=== PATIENT | female | born 1965 | race Caucasian/White ===

== ENCOUNTER 2017-08-20 04:45 | Observation (INO) | payer BC, OTHER ==
[2017-08-20] MEDS ORDERED: Adenocard IV 6 MG/2 ML IV ONE ×3 (04:55→05:05)
[2017-08-20] MEDS ORDERED: Sodium Chloride 0.9% 1000 ML 1,000 ML ONE (05:01)
[2017-08-20] MEDS ORDERED: Zofran 4 MG/2 ML VIAL ONE (05:03)
[2017-08-20] MEDS ORDERED: Zofran 4 MG/2 ML VIAL IV ONE (05:05)
[2017-08-20] MEDS ORDERED: Cardizem IV 50 MG/10 ML IV ONE ×3 (05:05→05:19)
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
[2017-08-20 05:11] LABS: BASOPHIL % 0.5 % (0.0-0.4); Basophil (Absolute #) 0.03 (0-0.4); Eosinophil % 2.5 % (0.00-5.0); Eosinophil (Absolute #) 0.15 (0-0.5); Granulocyte Absolute (ANC) 2.68 (1.4-6.9); Granulocytes % 44.8 % (36.0-66.0); Lymphocyte (Absolute #) 2.38 (1.0-4.6); Lymphocytes % 39.8 % (24.0-44.0); Mean Cell Volume 94.2 fl (78-100); Mean Corpuscular Hemoglobin 31.4 pg (26-32); Mean Corpuscular Hgb Concent. 33.3 g/dl (32-36); Mean Platelet Volume 11.1 fl (6-9.5); Monocyte (Absolute #) 0.74 (0.0-1.3); Monocytes % 12.4 % (0.0-12.0); Platelet Count 225 K/mm3 (150-450); Red Blood Count 4.46 M/mm3 (4.1-5.4); Red Cell Distribution Width 13.5 % (11.5-14.0)
[2017-08-20 05:28] LABS: INR 0.84 (0.8-3.0)
[2017-08-20 05:31] LABS: PTT 31.2 SECONDS (25.3-37.0)
[2017-08-20 05:44] LABS: ALKALINE PHOSPHATASE 101 U/L (46-116); ANION GAP 16.9 MEQ/L (5-15); BLOOD UREA NITROGEN 14 mg/dL (9-20); CHLORIDE 106 mEq/L (98-107); Calcium 8.3 mg/dL (8.5-10.1); Carbon Dioxide 24.4 mEq/L (21-32); Creatinine 1 0.87 mg/dl (0.55-1.30); EST GLOMERULAR FILTRATION RATE > 60 ML/MIN; Glucose 122 MG/DL (70-110); NT PRO BNP 144 pg/ml (0-125); Potassium 3.4 mEq/L (3.5-5.1); SGOT/AST 20 U/L (15-37); SGPT/ALT 23 U/L (12-78); SODIUM 144 mEq/L (136-145); Total Protein 7.8 gm/dL (6.4-8.2)
[2017-08-20] MEDS ORDERED: LOPRESSOR 5 MG/5 ML INJECTION IV ONE ×2 (05:54→05:56)
[2017-08-20] MEDS ORDERED: CARDIZEM DRIP 100 MG/100 ML D5W 100 ML IV PRN (06:06)
[2017-08-20] MEDS ORDERED: Klor Con 10 MEQ PO ONE ×2 (06:09→06:14)
[2017-08-20] MEDS ORDERED: MILK OF MAGNESIA 30 ML PO PRN (06:15)
[2017-08-20] MEDS ORDERED: Senokot-S Tablet PO PRN (06:15)
[2017-08-20] MEDS ORDERED: MAALOX ES 30 ML UNIT DOSE PO PRN (06:15)
[2017-08-20] MEDS ORDERED: Zofran 4 MG/2 ML VIAL IV PRN (06:15)
[2017-08-20] MEDS ORDERED: Ativan 2 MG/1 ML VIAL IV ONE (07:25)
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
[2017-08-20] MEDS ORDERED: xanAX 0.25 MG PO PRN (09:15)
[2017-08-20] MEDS ORDERED: xanAX 0.5 MG PO PRN (09:21)
[2017-08-20] MEDS: Klor Con 10 MEQ PO SCH (09:27)
[2017-08-20] MEDS: Lopressor 50 MG PO SCH ×2 (09:28→20:55)
[2017-08-20] MEDS: XARELTO 10 MG TABLET PO SCH (09:28)
[2017-08-20] MEDS: Ecotrin 325 MG PO SCH (09:28)
[2017-08-20] MEDS: Wellbutrin XL 150 MG PO SCH (09:29)
[2017-08-20] MEDS ORDERED: NON-FORMULARY ITEM (Rivaroxaban [Xarelto] 20 MG) PO SCH (10:00)
--- NOTE | 2017-08-20 10:31 | XRAY ---
Indication: SVT. Comparison: July 06, 2013. Portable chest again demonstrates normal heart, lungs, and bony thorax with a few incidental calcified granulomas and old right 6th rib fracture.
[2017-08-20] MEDS: TYLENOL 325 MG PO PRN ×2 (12:12→19:49)
[2017-08-20] MEDS: Cardizem CD 180 MG PO SCH (12:12)
[2017-08-20 22:35] VITALS: O2SAT 95
[2017-08-21 06:32] LABS: Risk Ratio 2.5
[2017-08-21 07:58] VITALS: BP 116/69; PULSE 72
--- NOTE | 2017-08-21 08:12 | PCM.DS ---
Discharge Summary Date of Admission: 08/20/17 06:44 Admitting Physician: JOHN MARY Primary Care Provider: JOHN MARY Allergies Allergies No Known Drug Allergies Allergy (Unverified 08/01/12 12:48) Hospital Summary - Hospital Course Hospital Course: patient presented in a fib with RVR, triggered by alcohol intoxication which has happened in the past. she converted on cardizem and has stayed in sinus rhythm since then. feels well and has no complaints today at the time of discharge. - Vitals & Intake/Output Vital Signs: Vital Signs Temperature 98.2 F 08/21/17 07:55 Pulse Rate 72 08/21/17 07:55 Respiratory Rate 16 08/21/17 07:55 Blood Pressure 116/69 08/21/17 07:55 O2 Sat by Pulse Oximetry 95 08/21/17 07:55 Oxygen-Last Documented O2 Percentage 2 Liters = 28% Intake & Output: Intake & Output 08/18/17 08/19/17 08/20/17 08/21/17 11:59 11:59 11:59 11:59 Intake Total 1118 Balance 1118 Weight 94.4 kg - Lab Result Diagrams: 08/20/17 05:08 08/20/17 05:08 Lab Results-Last 24 Hrs: Lab Results-Last 24 Hours 08/20/17 08/20/17 08/20/17 Range/Units 08:00 10:59 14:00 Troponin I < 0.017 < 0.017 < 0.017 (0.000-0.056) ng/ml Triglycerides (30-200) mg/dL Cholesterol (100-200) mg/dL LDL Cholesterol (5-99) mg/dL HDL Cholesterol (35-60) mg/dL Heart Disease Risk Ratio 08/20/17 08/21/17 Range/Units 17:12 05:05 Troponin I < 0.017 (0.000-0.056) ng/ml Triglycerides 159 (30-200) mg/dL Cholesterol 222 H (100-200) mg/dL LDL Cholesterol 113 H (5-99) mg/dL HDL Cholesterol 90 H (35-60) mg/dL Heart Disease Risk Ratio 2.5 - Procedures and Test Procedures and Tests throughout Hospitalization: Therapy Orders & Screens 08/20/17 08:15 Oxygen NASAL CANNULA 2 lpm Comment: 08/20/17 12:53 EKG ONCE Comment: 08/21/17 05:00 EKG ONCE Comment: 08/22/17 05:00 EKG ONCE Comment: 08/23/17 05:00 EKG ONCE Comment: Discharge Exam General Appearance: no apparent distress, alert Skin Exam: normal color, warm, dry Respiratory Exam: normal breath sounds, lungs clear, No respiratory distress Cardiovascular Exam: regular rate/rhythm, normal heart sounds Gastrointestinal/Abdomen Exam: soft, No tenderness, No mass Extremity Exam: normal inspection, normal range of motion Final Diagnosis/Problem List - Final Discharge Diagnosis/Problem (1) Atrial fibrillation with rapid ventricular response Current Visit: Yes Status: Acute (2) Alcohol intoxication Current Visit: Yes Status: Acute - Discharge Disposition: Home, Self-Care Condition: Fair Prescriptions: Continue Potassium Chloride 10 Meq Tab* [Klor Con 10 MEQ] 10 meq PO DAILY Rivaroxaban [Xarelto] 20 mg PO DAILY Metoprolol Tartrate 50 mg PO BID Bupropion HCl Xl 150 mg [Wellbutrin XL 150 MG] 150 mg PO DAILY Alprazolam 0.25 mg [xanAX 0.25 MG] 0.5 mg PO BIDPRN PRN PRN Reason: Anxiety Ibuprofen 200 mg [Motrin 200 mg] 400 mg PO Q6HPRN PRN PRN Reason: Pain And/Or Fever Follow up with: JOHN MARY MD [Primary Care Provider] - EVANGELIST HITCHCOCK [CONSULTING PHYSICIAN] - 1 Week
[2017-08-21] MEDS: Cardizem CD 180 MG PO SCH (08:36)
[2017-08-21] MEDS: XARELTO 10 MG TABLET PO SCH (08:39)
[2017-08-21] MEDS: Ecotrin 325 MG PO SCH (08:40)
[2017-08-21] MEDS: Wellbutrin XL 150 MG PO SCH (08:40)
[2017-08-21] MEDS: Klor Con 10 MEQ PO SCH (08:40)
[2017-08-21] MEDS: Lopressor 50 MG PO SCH (08:40)
== END 2017-08-21 09:30 | disposition home or self-care (01) ==
LOC: ED 04:45 → INTOOBSV 06:44 → ICU 06:44 → UNDODISIN 08-21 09:30
PROVIDERS: ADMIT Family Medicine; ATTEND Family Medicine
DX: I48.91 Unspecified atrial fibrillation (principal); F10.129 Alcohol abuse with intoxication, unspecified; F41.9 Anxiety disorder, unspecified
CPT/HCPCS: 36000; 36415; 71045; 80053; 80061; 83721; 83735; 83880; 84443; 84484; 85025; 85610; 85730; 93005; 93041; 93268; 96360; 96365; 99285; G0378; G0481; J0153; J2060; J2405; A9270-GY

== ENCOUNTER 2025-02-21 03:18 | Observation (INO) | payer OTHER ==
[2025-02-21] MEDS ORDERED: DUONEB 0.5-3 MG/3 ml Neb IH ONE (03:58)
[2025-02-21] MEDS: DUONEB 0.5-3 MG/3 ml Neb IH ONE (04:01)
[2025-02-21 04:14] LABS: BASOPHIL % 1.0 % (0.1-1.2); Basophil (Absolute #) 0.08 x10^3/uL (0.01-0.08); Eosinophil (Absolute #) 0.05 x10^3/uL (0.04-0.36); Hematocrit 40.3 % (34.1-44.9); Hemoglobin 13.6 g/dL (11.2-15.7); IMMATURE GRAN # 0.04 x10^3u/L (0.001-0.031); IMMATURE GRAN % 0.5 % (0.001-0.429); Lymphocyte (Absolute #) 1.02 x10^3/uL (1.18-3.74); Mean Corpuscular Hemoglobin 30.6 pg (25.6-32.2); Mean Corpuscular Hgb Concent. 33.7 g/dL (32.2-35.5); Monocyte (Absolute #) 0.76 x10^3/uL (0.24-0.86); NUCLEATED RBC # 0.00 x10^3u/L (0.00-0.012); NUCLEATED RBC % 0.0 % (0.00-0.2); Platelet Count 245 x10^3/uL (182-369); Red Blood Count 4.45 x10^6/uL (3.93-5.22); White Blood Count 7.9 x10^3/uL (3.98-10.04)
--- NOTE | 2025-02-21 04:29 | XRAY ---
CLINICAL HISTORY: cough, lung congestion COMPARISON: None. TECHNIQUE: Contiguous axial images were obtained from the neck base through the upper abdomen without contrast. In addition, sagittal and coronal reconstructions were performed to potentially increase the sensitivity for the detection of disease. CT scan was performed according to ALARA (as low as reasonable achievable). FINDINGS: A calcified nodule measuring 6mm is seen in the posterior segment of right upper lobe. The lungs are otherwise clear, with no focal areas of consolidation. The central airways are patent. There are no pleural effusions. No pneumothorax is seen. Evaluation of the mediastinum and jhoan is limited due to the lack of intravenous contrast. Calcified right hilar lymph node is seen. No significant axillary or mediastinal adenopathy is identified. The heart, aorta, and pulmonary arteries are of normal size and configuration. There are appreciable coronary artery and aortic atherosclerotic calcifications. No pericardial effusion is identified. The thyroid is unremarkable. No aggressive appearing osseous lesions are identified. Surgical sutures are seen in the stomach wall. IMPRESSION: 1. 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 Electronically Signed by: Chester Calderon MD. (02/21/2025 04:26:57 EDT)
[2025-02-21 04:30] LABS: Calcium 8.8 mg/dL (8.4-10.2); Carbon Dioxide 25.0 mmol/L (22-30); Creatinine 1 0.46 mg/dL (0.52-1.04); EST GLOMERULAR FILTRATION RATE 110.2 ML/MIN; Glucose 122.0 mg/dL (74-106); Potassium 4.0 mmol/L (3.5-5.1); SGOT/AST 42.0 U/L (14-36); SGPT/ALT 34.0 U/L (0-35); Total Protein 7.4 g/dL (6.3-8.2)
[2025-02-21] MEDS ORDERED: Sterile H2O 10 ml IJ ONE (04:32)
[2025-02-21] MEDS: HYDROCODONE-ACETAMIN 2.5-108/5 ML SOLUTION PO STA (04:33)
[2025-02-21] MEDS ORDERED: TRANDATE 100 MG/20 ML MDV FOR DRIP IV ONE (04:33)
[2025-02-21] MEDS ORDERED: ROCEPHIN 2 GM/100 ML NACL 2 GM/100 ML IVPB IV ONE (04:35)
[2025-02-21] MEDS ORDERED: HYDROCODONE-ACETAMIN 2.5-108/5 ML SOLUTION ONE (04:35)
[2025-02-21] MEDS: solu-MEDROL 125 MG, Sterile H2O 10 ml 2 ML IV ONE (04:40)
[2025-02-21] MEDS: ROCEPHIN 2 GM/100 ML NACL 2 GM/100 ML IVPB IV ONE (04:40)
[2025-02-21] MEDS: TRANDATE 100 MG/20 ML MDV FOR DRIP IV ONE (04:41)
[2025-02-21 04:54] LABS: INFLUENZA A NEGATIVE (NEGATIVE); INFLUENZA B NEGATIVE (NEGATIVE); RESPIRATORY SYNCTIAL VIRUS NEGATIVE (NEGATIVE); SARS-CoV-2 Xpert Express NEGATIVE (NEGATIVE)
--- NOTE | 2025-02-21 06:29 | ERPHSYRPT ---
- History of Present Illness Time Seen by Provider: 02/21/25 03:39 Source: patient Exam Limitations: no limitations Patient Subjective Stated Complaint: cough, lung congestion, rib pain from coughing Triage Nursing Assessment: Pt ambulated into ER without diff, spouse at bedside. Pt c/o cough, lung congestion and rib pain bilat from coughing. Rt side lungs ant/post are coarse with rhonchi, Lt side lungs ant/post clear with an occasional wheeze. Pt denies fever, vomiting or diarrhea. Pt's cough is occasionally productive with thin, clear to white sputum. Pt only took one dose of her b/p med yesterday but it is ordered twice daily. Physician History: 59-year-old female presented in the ER with 4 to 5 days history of cough congestion symptoms. Patient reported it started as a sore throat followed by soreness in the chest with cough initially nonproductive but now minimal productive of clear sputum. Patient reports nonstop coughing which gets especially worse with lying down and she cannot sleep. Because of repeated coughing complaining of generalized chest soreness/pain. No difficulty breathing otherwise. Subjective feeling of fever and chills. No known sick contact. No history of coronary artery disease. Patient blood pressure is in 190s, has not taken her evening dose of metoprolol. Allergies/Adverse Reactions: No Known Drug Allergies Allergy (Unverified 02/21/25 03:35) Home Medications: Metoprolol Tartrate 50 mg PO BID 08/20/17 [History] Hx Tetanus, Diphtheria Vaccination/Date Given: Yes Hx Influenza Vaccination/Date Given: Yes Hx Pneumococcal Vaccination/Date Given: Yes Travel Risk - International Travel Have you traveled outside of the country in past 3 weeks: No - Emerging Infectious Disease Are you exhibiting symptoms associated with any current EIDs: Yes Symptoms: Cough: New Onset, Shortness of Breath - Review of Systems Constitutional: Fever, Chills, Fatigue Eyes: No Symptoms Ears, Nose, & Throat: Throat Swelling Respiratory: Cough, Dyspnea, Wheezing Cardiac: Chest Pain Abdominal/Gastrointestinal: No Symptoms Genitourinary Symptoms: No Symptoms Musculoskeletal: Myalgias Skin: No Symptoms Neurological: No Symptoms Psychological: No Symptoms Endocrine: No Symptoms Hematologic/Lymphatic: No Symptoms Immunological/Allergic: No Symptoms - Past Medical History Pertinent Past Medical History: No Neurological History: No Pertinent History ENT History: No Pertinent History Cardiac History: Arrhythmia, Hypertension Respiratory History: No Pertinent History Endocrine Medical History: No Pertinent History Musculoskeletal History: No Pertinent History GI Medical History: No Pertinent History History: No Pertinent History Psycho-Social History: Anxiety, Depression Female Reproductive Disorders: No Pertinent History - Past Surgical History Past Surgical History: Yes Neuro Surgical History: No Pertinent History Cardiac: Other Respiratory: No Pertinent History Gastrointestinal: Other Genitourinary: No Pertinent History Musculoskeletal: No Pertinent History Female Surgical History: Section Other Surgical History: BARIATRIC SURGERY. TONSILLECTOMY. cardiac ablation - Social History Smoking Status: Never smoker Exposure to second hand smoke: No Drug Use: none - Social Determinants of Health Will the patient participate in the screening: Yes Do you worry about a steady place to live?: No Do you have any problems with any of the following?: No known problems In the past 12 months,have you had to go without utilities?: No Transportation Issues: No Has anyone in your support network made you feel unsafe?: No Have you or anyone in your house had to go w/o enough food: No - Nursing Vital Signs Nursing Vital Signs: Initial Vital Signs Temperature 98.5 F 02/21/25 03:23 Pulse Rate 99 H 02/21/25 03:23 Respiratory Rate 20 02/21/25 03:23 Blood Pressure 203/110 02/21/25 03:23 O2 Sat by Pulse Oximetry 96 02/21/25 03:23 Pain Scale Pain Intensity 4 - Physical Exam General Appearance: no apparent distress, alert Eye Exam: PERRL/EOMI Ears, Nose, Throat Exam: pharyngeal erythema Neck Exam: normal inspection, non-tender, supple, full range of motion Respiratory Exam: diminished breath sounds, crackles/rales, wheezing Cardiovascular Exam: regular rate/rhythm, normal heart sounds Gastrointestinal/Abdomen Exam: soft, normal bowel sounds Back Exam: normal inspection, normal range of motion Extremity Exam: normal inspection, normal range of motion Neurologic Exam: alert, oriented x 3, cooperative Skin Exam: normal color SpO2 Interpretation: normal SpO2: 93 O2 Delivery: Room Air - Course EKG Interpreted by Me: RATE ([id number]), Sinus Rhythm, NORMAL AXIS, NORMAL INTERVALS, NORMAL QRS Ordered Tests: Active Orders 24 hr Category Date Time Status IV Insertion STAT Care 02/21/25 03:48 Active CHEST WITHOUT CONTRAST [CT] Stat Exams 02/21/25 03:44 Completed BLOOD CULTURE Stat Lab 02/21/25 04:12 Received CBC W DIFF Stat Lab 02/21/25 04:00 Completed CMP Stat Lab 02/21/25 04:00 Completed Lactic Acid Stat Lab 02/21/25 03:46 Completed Lactic Acid Stat Lab 02/21/25 06:44 Completed Respiratory Therapy Assessment DAILY RT 02/21/25 04:01 Active Transfer Order Routine Transfer 02/21/25 Ordered Medication Summary Generic Name Dose Route Start Last Admin Trade Name Freq PRN Reason Stop Dose Admin Sodium Chloride 1,000 mls @ 1,000 mls/hr 02/21/25 04:30 02/21/25 07:01 Sodium Chloride 0.9% 1000 Ml IV 03/23/25 04:29 999 mls/hr .Q1H FELTON Administration Azithromycin 500 mg/ Sodium 250 mls @ 250 mls/hr 02/21/25 06:53 02/21/25 07:02 Chloride IV 02/21/25 07:52 250 mls/hr STAT STA 250 mls/hr Administration Discontinued Medications Generic Name Dose Route Start Last Admin Trade Name Freq PRN Reason Stop Dose Admin Hydrocodone Bitart/Acetaminophen Confirm 02/21/25 04:35 Hydrocodone/Acetaminophen 5 Ml Udcup Administered 02/21/25 04:36 Dose 10 ml .ROUTE .STK-MED ONE Hydrocodone Bitart/Acetaminophen 10 ml 02/21/25 04:33 02/21/25 04:33 Hydrocodone/Acetaminophen 5 Ml Udcup PO 02/21/25 04:34 10 ml STAT STA Administration Albuterol/Ipratropium 3 ml 02/21/25 03:48 02/21/25 04:01 Ipratropium/Albuterol Sulfate 3 Ml Ampul.Neb IH 02/21/25 03:49 3 ml STAT ONE Administration Albuterol/Ipratropium Confirm 02/21/25 03:58 Ipratropium/Albuterol Sulfate 3 Ml Ampul.Neb Administered 02/21/25 03:59 Dose 3 ml IH .STK-MED ONE Azithromycin Confirm 02/21/25 06:56 Azithromycin Inj Administered 02/21/25 06:57 Dose 500 mg IV .STK-MED ONE Methylprednisolone Sodium 0 mg 02/21/25 04:32 02/21/25 04:40 Succinate 125 mg/ Sterile IV 02/21/25 04:33 125 mg Water 2 ml STAT ONE Administration Ceftriaxone Sodium Confirm 02/21/25 04:35 Rocephin 2 Gm/100 Ml Nacl Administered 02/21/25 04:36 Dose 2 gm in 100 mls @ ud IV .STK-MED ONE Ceftriaxone Sodium 2 gm in 100 mls @ 200 mls/hr 02/21/25 04:30 02/21/25 05:10 Rocephin 2 Gm/100 Ml Nacl IV 02/21/25 04:59 Infused STAT ONE Infusion Sodium Chloride Confirm 02/21/25 06:56 Sodium Chloride 0.9% 250 Ml Administered 02/21/25 06:57 Dose 250 mls @ ud IV .STK-MED ONE Labetalol HCl 10 mg 02/21/25 04:31 02/21/25 04:41 Labetalol Hcl 100 Mg/20 Ml Mdv IV 02/21/25 04:32 10 mg ONCE ONE Administration Labetalol HCl Confirm 02/21/25 04:33 Labetalol Hcl 100 Mg/20 Ml Mdv Administered 02/21/25 04:34 Dose 100 mg IV .STK-MED ONE Methylprednisolone Sodium Succinate Confirm 02/21/25 04:34 Methylprednis Sod Succ 125 Mg/2 Ml Vial Administered 02/21/25 04:35 Dose 125 mg .ROUTE .STK-MED ONE Sterile Water Confirm 02/21/25 04:32 Water For Injection,Sterile 10 Ml Vial Administered 02/21/25 04:33 Dose 10 ml IJ .STK-MED ONE Lab/Rad Data: Laboratory Result Diagrams 02/21/25 04:00 02/21/25 04:00 Laboratory Results 02/21/25 02/21/25 02/21/25 Range/Units 06:44 04:12 04:00 WBC (3.98-10.04) x10^3/uL RBC (3.93-5.22) x10^6/uL Hgb (11.2-15.7) g/dL Hct (34.1-44.9) % MCV (79.4-94.8) fL MCH (25.6-32.2) pg MCHC (32.2-35.5) g/dL RDW (11.7-14.4) % Plt Count (182-369) x10^3/uL MPV (9.4-12.3) fL Gran % (34.0-71.1) % Immature Gran % (Auto) (0.001-0.429) % Nucleat RBC Rel Count (0.00-0.2) % Eos # (Auto) (0.04-0.36) x10^3/uL Immature Gran # (Auto) (0.001-0.031) x10^3u/L Absolute Lymphs (auto) (1.18-3.74) x10^3/uL Absolute Monos (auto) (0.24-0.86) x10^3/uL Absolute Nucleated RBC (0.00-0.012) x10^3u/L Lymphocytes % (19.3-51.7) % Monocytes % (4.7-12.5) % Eosinophils % (0.7-5.8) % Basophils % (0.1-1.2) % Absolute Granulocytes (1.56-6.13) x10^3/uL Basophils # (0.01-0.08) x10^3/uL Sodium 134 L (135-145) mmol/L Potassium 4.0 (3.5-5.1) mmol/L Chloride 98 (98-107) mmol/L Carbon Dioxide 25 (22-30) mmol/L Anion Gap 15.1 H (5-15) MEQ/L BUN 12 (7-17) mg/dL Creatinine 0.46 L (0.52-1.04) mg/dL Estimated GFR 110.2 ML/MIN Glucose 122 H (74-106) mg/dL Lactic Acid 3.9 H (0.4-2.0) Calcium 8.8 (8.4-10.2) mg/dL Total Bilirubin 0.70 (0.2-1.3) mg/dL AST 42 H (14-36) U/L ALT 34 (0-35) U/L Alkaline Phosphatase 108 (38-126) U/L Serum Total Protein 7.4 (6.3-8.2) g/dL Albumin 4.3 (3.5-5.0) g/dL Influenza Type A Ag NEGATIVE (NEGATIVE) Influenza Type B Ag NEGATIVE (NEGATIVE) RSV (PCR) NEGATIVE (NEGATIVE) SARS-CoV-2 (PCR) NEGATIVE (NEGATIVE) 02/21/25 02/21/25 Range/Units 04:00 03:46 WBC 7.9 (3.98-10.04) x10^3/uL RBC 4.45 (3.93-5.22) x10^6/uL Hgb 13.6 (11.2-15.7) g/dL Hct 40.3 (34.1-44.9) % MCV 90.6 (79.4-94.8) fL MCH 30.6 (25.6-32.2) pg MCHC 33.7 (32.2-35.5) g/dL RDW 12.8 (11.7-14.4) % Plt Count 245 (182-369) x10^3/uL MPV 10.8 (9.4-12.3) fL Gran % 75.4 H (34.0-71.1) % Immature Gran % (Auto) 0.5 H (0.001-0.429) % Nucleat RBC Rel Count 0.0 (0.00-0.2) % Eos # (Auto) 0.05 (0.04-0.36) x10^3/uL Immature Gran # (Auto) 0.04 H (0.001-0.031) x10^3u/L Absolute Lymphs (auto) 1.02 L (1.18-3.74) x10^3/uL Absolute Monos (auto) 0.76 (0.24-0.86) x10^3/uL Absolute Nucleated RBC 0.00 (0.00-0.012) x10^3u/L Lymphocytes % 12.9 L (19.3-51.7) % Monocytes % 9.6 (4.7-12.5) % Eosinophils % 0.6 L (0.7-5.8) % Basophils % 1.0 (0.1-1.2) % Absolute Granulocytes 5.95 (1.56-6.13) x10^3/uL Basophils # 0.08 (0.01-0.08) x10^3/uL Sodium (135-145) mmol/L Potassium (3.5-5.1) mmol/L Chloride (98-107) mmol/L Carbon Dioxide (22-30) mmol/L Anion Gap (5-15) MEQ/L BUN (7-17) mg/dL Creatinine (0.52-1.04) mg/dL Estimated GFR ML/MIN Glucose (74-106) mg/dL Lactic Acid 3.8 H (0.4-2.0) Calcium (8.4-10.2) mg/dL Total Bilirubin (0.2-1.3) mg/dL AST (14-36) U/L ALT (0-35) U/L Alkaline Phosphatase (38-126) U/L Serum Total Protein (6.3-8.2) g/dL Albumin (3.5-5.0) g/dL Influenza Type A Ag (NEGATIVE) Influenza Type B Ag (NEGATIVE) RSV (PCR) (NEGATIVE) SARS-CoV-2 (PCR) (NEGATIVE) - Progress Progress: improved, re-examined Air Movement: fair Progress Note: 02/21/25 06:55 Differential diagnosis: Pneumonia, pneumothorax, viral syndrome/URI with cough congestion, acute coronary syndrome, pulmonary embolism, sepsis 59-year-old is evaluated in the ER for cough congestion symptoms for the last few days with progressive worsening. EKG is sinus rhythm with no acute ischemic changes. Workup showed normal white count, chemistries fairly unremarkable except for a lactate of 3.8. She is given DuoNeb and Solu-Medrol along with elixir, feeling much better on reevaluation. She is given fluid bolus. Patient blood pressure was in 190s, given a dose of labetalol as she has not taken her evening dose of metoprolol. CT chest is negative for any acute intrathoracic findings. She is given a dose of IV Rocephin and Zithromax. Repeat lactate is 3.9. Will give full sepsis bolus. Discussed with Dr. Gore and patient is being admitted. Complexity of problems addressed: Moderate to high acuity Complexity of data reviewed/analyzed: Moderate to extensive Risk of complication: Low to moderate 02/21/25 06:54 Blood Culture(s) Obtained: Yes Antibiotics given: Yes Discussed with : Ken Will see patient in: hospital (observation) Counseled pt/family regarding: lab results, diagnosis, need for follow-up, rad results Medical Desision Making - Independent Historian Additional History obtained from: Spouse - Discussion of managment Care discussed with:: hospitalist Reviewed:: Test results Agreed on:: Treatment plan, place in obs Will see patient: in hospital - Diagnostic Testing Diagnostic test were ordered, analyzed, and reviewed by me: Yes Radiological Interpretation: Reviewed by me, Teleradiologist Report - Risk of complications The pt has a mod risk of morbidity or mortality based on: Need for prescription drug management The pt has a high risk of morbidity or mortality based on: Decision regarding hospitilization or escalation of hosp level of care - Departure Departure Disposition: Observation Clinical Impression: Sepsis, Bronchitis Condition: Stable Critical Care Time: No Referrals: STEVE FOSS AD TRAFFICKER [Primary Care Provider, UNKNOWN] - Follow up/PCP as directed
[2025-02-21] MEDS ORDERED: ZITHROMAX IV IV ONE (06:56)
[2025-02-21] MEDS: ZITHROMAX IV*** 500 MG in Sodium Chloride 0.9% 250 ML 250 ML IV STA (07:02)
[2025-02-21] MEDS ORDERED: Zofran 4 MG/2 ML VIAL ONE (07:18)
[2025-02-21] MEDS: Zofran 4 MG/2 ML VIAL IV ONE (07:19)
[2025-02-21] MEDS ORDERED: Ativan 2 MG/1 ML VIAL ONE (07:27)
[2025-02-21] MEDS: Ativan 2 MG/1 ML VIAL IV ONE ×2 (07:28→07:49)
[2025-02-21 08:36] LABS: Glucose, Urine Negative (Negative); Protein,Urine Dip Negative (Negative); RBC 0-2 /HPF (0-5); WBC 0-2 /HPF (0-5)
[2025-02-21] MEDS: VITAMIN D PO SCH (09:23)
[2025-02-21] MEDS: Lopressor 50 MG PO SCH (09:24)
[2025-02-21] MEDS: Tessalon Perles 100 MG PO PRN (09:38)
[2025-02-21] MEDS ORDERED: NON-FORMULARY ITEM (Cholecalciferol (Vitamin D3) [Vitamin D3] 25 MCG Capsule) PO SCH (10:00)
[2025-02-21] MEDS: DUONEB 0.5-3 MG/3 ml Neb IH SCH (10:52)
--- NOTE | 2025-02-21 11:16 | PCM.HP ---
History of Present Illness - Chief Complaint Chief Complaint: Sepsis/bronchitis Date: 02/21/25 History of Present Illness: 02/21/25 The patient is a 59-year-old female with a past medical history of hypertension, atrial fibrillation, depression, anxiety, and alcohol use (primarily wine), who presented to the emergency department with a 45 day history of cough and congestion. Her symptoms began with a sore throat, followed by chest soreness and a persistent cough that was initially nonproductive but has since become minimally productive with clear sputum. She reports continuous coughing that worsens when lying down, preventing her from sleeping. She also endorses subjective fevers and chills but denies known sick contacts. She has no history of coronary artery disease. In the emergency department, her blood pressure was elevated in the 190s, which she attributed to missing her evening dose of metoprolol. She met criteria for sepsis, with a repeat lactic acid of 3.9 at 6:44 a.m. She received two fluid boluses initially, and an additional bolus was ordered upon admission, along with continued IV fluids. Her anion gap was elevated at 15.5, consistent with dehydration. Chest CT was unremarkable for any acute findings. Blood cultures 2 are pending, and the urine culture has returned negative. Sputum culture is also pending. She was started on ceftriaxone for suspected bronchitis, and a repeat chest X-ray is planned for the morning. The patient is currently on 2 L nasal cannula for comfort, with coarse lung sounds on auscultation. Her condition and findings were discussed in detail with her, and she currently denies any further concerns. - Review of Systems Constitutional: Fever, Chills, Fatigue, Malaise Eyes: No Symptoms Ears, Nose, & Throat: No Symptoms Respiratory: Cough, Short Of Breath Cardiac: No Chest Pain, No Edema, No Syncope Abdominal/Gastrointestinal: No Abdominal Pain, No Nausea, No Vomiting, No Diarrhea Genitourinary Symptoms: No Dysuria Musculoskeletal: No Back Pain, No Neck Pain Skin: No Rash Neurological: No Dizziness, No Focal Weakness, No Sensory Changes Psychological: No Symptoms Endocrine: No Symptoms Hematologic/Lymphatic: No Symptoms Immunological/Allergic: No Symptoms Medications & Allergies Home Medications: Home Medication List Metoprolol Tartrate 50 mg PO BID 08/20/17 [History Confirmed 02/21/25] Cholecalciferol (Vitamin D3) [Vitamin D3] 25 mcg PO DAILY 02/21/25 [History Confirmed 02/21/25] Allergies/Adverse Reactions: Allergies Allergy/AdvReac Type Severity Reaction Status Date / Time No Known Drug Allergies Allergy Verified 02/21/25 07:53 - Past Medical History Past Medical History: Yes Neurological History: No Pertinent History ENT History: No Pertinent History Cardiac History: Arrhythmia, Hypertension Respiratory History: No Pertinent History Endocrine Medical History: No Pertinent History Musculoskelatal History: No Pertinent History GI Medical History: No Pertinent History History: No Pertinent History Pyscho-Social History: Anxiety, Depression Reproductive Disorders: No Pertinent History Comment: DENIES ILLNESSES - Past Surgical History Past Surgical History: Yes Neuro Surgical History: No Pertinent History Cardiac History: Other Respiratory Surgery: No Pertinent History GI Surgical History: Other Genitourinary Surgical Hx: No Pertinent History Musculskeletal Surgical Hx: No Pertinent History Female Surgical History: Section Other Surgical History: BARIATRIC SURGERY, cardiac ablation, 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 [employer] (can't remember the name at time of 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) Significant Family History: no pertinent family hx - Social History Smoking Status: Never smoker Exposure to second hand smoke: No Alcohol: Occasionally Drug Use: none - Social Determinants of Health Will the patient participate in the screening: Yes Do you worry about a steady place to live?: No Do you have any problems with any of the following?: No known problems In the past 12 months,have you had to go without utilities?: No Have you or anyone in your house had to go without enough: No Transportation Issues: No Has anyone in your support network made you feel unsafe?: No Does the patient want assistance with any of the above?: No - Physical Exam Vital Signs: Vital Signs - 24 hr Temp Pulse Resp BP BP Pulse Ox 02/21/25 10:57 98 H 18 93 L 02/21/25 07:58 98.1 F 98 H 24 176/84 96 02/21/25 07:16 202/108 02/21/25 07:04 93 L 02/21/25 07:00 98.2 F 89 19 177/124 96 02/21/25 06:00 87 21 172/86 93 L 02/21/25 05:45 86 19 161/97 93 L 02/21/25 05:30 90 21 177/83 97 02/21/25 05:15 93 H 21 149/74 93 L 02/21/25 05:00 91 H 25 H 154/81 95 02/21/25 04:46 86 24 169/78 02/21/25 04:30 98 H 28 H 175/92 96 02/21/25 04:12 93 H 21 193/106 95 02/21/25 04:02 91 H 18 96 02/21/25 03:30 96 H 23 180/95 99 02/21/25 03:26 22 98 02/21/25 03:23 98.5 F 99 H 20 203/110 96 General Appearance: no apparent distress, alert, obese Neurologic Exam: alert, oriented x 3, cooperative, normal mood/affect, nml cerebellar function, nml station & gait, sensation nml, No motor deficits Eye Exam: PERRL/EOMI, eyes nml inspection Ears, Nose, Throat Exam: normal ENT inspection, TMs normal, pharynx normal, moist mucous membranes Neck Exam: normal inspection, non-tender, supple, full range of motion Respiratory Exam: rhonchi, No respiratory distress Cardiovascular Exam: regular rate/rhythm, normal heart sounds, normal peripheral pulses Gastrointestinal/Abdomen Exam: soft, normal bowel sounds, No tenderness, No mass Back Exam: normal inspection, normal range of motion, No CVA tenderness, No vertebral tenderness Extremity Exam: normal inspection, normal range of motion, pelvis stable Skin Exam: normal color, warm, dry, No rash Lymphatic Exam: No adenopathy Results - Labs Lab/Micro Results: Lab Results-Last 24 Hours 02/21/25 02/21/25 02/21/25 Range/Units 03:46 04:00 04:00 WBC 7.9 (3.98-10.04) x10^3/uL RBC 4.45 (3.93-5.22) x10^6/uL Hgb 13.6 (11.2-15.7) g/dL Hct 40.3 (34.1-44.9) % MCV 90.6 (79.4-94.8) fL MCH 30.6 (25.6-32.2) pg MCHC 33.7 (32.2-35.5) g/dL RDW 12.8 (11.7-14.4) % Plt Count 245 (182-369) x10^3/uL MPV 10.8 (9.4-12.3) fL Gran % 75.4 H (34.0-71.1) % Immature Gran % (Auto) 0.5 H (0.001-0.429) % Nucleat RBC Rel Count 0.0 (0.00-0.2) % Eos # (Auto) 0.05 (0.04-0.36) x10^3/uL Immature Gran # (Auto) 0.04 H (0.001-0.031) x10^3u/L Absolute Lymphs (auto) 1.02 L (1.18-3.74) x10^3/uL Absolute Monos (auto) 0.76 (0.24-0.86) x10^3/uL Absolute Nucleated RBC 0.00 (0.00-0.012) x10^3u/L Lymphocytes % 12.9 L (19.3-51.7) % Monocytes % 9.6 (4.7-12.5) % Eosinophils % 0.6 L (0.7-5.8) % Basophils % 1.0 (0.1-1.2) % Absolute Granulocytes 5.95 (1.56-6.13) x10^3/uL Basophils # 0.08 (0.01-0.08) x10^3/uL Sodium 134 L (135-145) mmol/L Potassium 4.0 (3.5-5.1) mmol/L Chloride 98 (98-107) mmol/L Carbon Dioxide 25 (22-30) mmol/L Anion Gap 15.1 H (5-15) MEQ/L BUN 12 (7-17) mg/dL Creatinine 0.46 L (0.52-1.04) mg/dL Estimated GFR 110.2 ML/MIN Glucose 122 H (74-106) mg/dL Lactic Acid 3.8 H (0.4-2.0) Calcium 8.8 (8.4-10.2) mg/dL Total Bilirubin 0.70 (0.2-1.3) mg/dL AST 42 H (14-36) U/L ALT 34 (0-35) U/L Alkaline Phosphatase 108 (38-126) U/L Serum Total Protein 7.4 (6.3-8.2) g/dL Albumin 4.3 (3.5-5.0) g/dL Urine Color (Yellow) Urine Appearance (Clear) Urine pH (4.6-8.0) Ur Specific [place] (1.005-1.030) Urine Protein (Negative) Urine Glucose (UA) (Negative) mg/dL Urine Ketones (Negative) Urine Blood (Negative) Urine Nitrite (Negative) Urine Bilirubin (Negative) Urine Urobilinogen (0.2) mg/dL Ur Leukocyte Esterase (Negative) U Hyaline Cast (Auto) (0-2) /LPF Urine Microscopic RBC (0-5) /HPF Urine Microscopic WBC (0-5) /HPF Ur Epithelial Cells (None Seen) /HPF Urine Bacteria (None Seen) /HPF Urine Culture Reflexed (NO) Influenza Type A Ag (NEGATIVE) Influenza Type B Ag (NEGATIVE) RSV (PCR) (NEGATIVE) SARS-CoV-2 (PCR) (NEGATIVE) 02/21/25 02/21/25 02/21/25 Range/Units 04:12 06:44 08:00 WBC (3.98-10.04) x10^3/uL RBC (3.93-5.22) x10^6/uL Hgb (11.2-15.7) g/dL Hct (34.1-44.9) % MCV (79.4-94.8) fL MCH (25.6-32.2) pg MCHC (32.2-35.5) g/dL RDW (11.7-14.4) % Plt Count (182-369) x10^3/uL MPV (9.4-12.3) fL Gran % (34.0-71.1) % Immature Gran % (Auto) (0.001-0.429) % Nucleat RBC Rel Count (0.00-0.2) % Eos # (Auto) (0.04-0.36) x10^3/uL Immature Gran # (Auto) (0.001-0.031) x10^3u/L Absolute Lymphs (auto) (1.18-3.74) x10^3/uL Absolute Monos (auto) (0.24-0.86) x10^3/uL Absolute Nucleated RBC (0.00-0.012) x10^3u/L Lymphocytes % (19.3-51.7) % Monocytes % (4.7-12.5) % Eosinophils % (0.7-5.8) % Basophils % (0.1-1.2) % Absolute Granulocytes (1.56-6.13) x10^3/uL Basophils # (0.01-0.08) x10^3/uL Sodium (135-145) mmol/L Potassium (3.5-5.1) mmol/L Chloride (98-107) mmol/L Carbon Dioxide (22-30) mmol/L Anion Gap (5-15) MEQ/L BUN (7-17) mg/dL Creatinine (0.52-1.04) mg/dL Estimated GFR ML/MIN Glucose (74-106) mg/dL Lactic Acid 3.9 H (0.4-2.0) Calcium (8.4-10.2) mg/dL Total Bilirubin (0.2-1.3) mg/dL AST (14-36) U/L ALT (0-35) U/L Alkaline Phosphatase (38-126) U/L Serum Total Protein (6.3-8.2) g/dL Albumin (3.5-5.0) g/dL Urine Color Yellow (Yellow) Urine Appearance Turbid A (Clear) Urine pH 7.5 (4.6-8.0) Ur Specific [place] <=1.005 (1.005-1.030) Urine Protein Negative (Negative) Urine Glucose (UA) Negative (Negative) mg/dL Urine Ketones Negative (Negative) Urine Blood Negative (Negative) Urine Nitrite Negative (Negative) Urine Bilirubin Negative (Negative) Urine Urobilinogen 0.2 (0.2) mg/dL Ur Leukocyte Esterase Negative (Negative) U Hyaline Cast (Auto) NONE SEEN (0-2) /LPF Urine Microscopic RBC 0-2 (0-5) /HPF Urine Microscopic WBC 0-2 (0-5) /HPF Ur Epithelial Cells None Seen (None Seen) /HPF Urine Bacteria None Seen (None Seen) /HPF Urine Culture Reflexed NO (NO) Influenza Type A Ag NEGATIVE (NEGATIVE) Influenza Type B Ag NEGATIVE (NEGATIVE) RSV (PCR) NEGATIVE (NEGATIVE) SARS-CoV-2 (PCR) NEGATIVE (NEGATIVE) - Radiology Impressions Radiology Exams & Impressions: Radiology Procedures Category Date Time Status CHEST WITHOUT CONTRAST [CT] Stat Exams 07/31/25 03:44 Completed - Other Procedures and Tests Respiratory Therapy 02/21/25 04:01 Respiratory Therapy Assessment DAILY 02/21/25 10:56 Oxygen NASAL CANNULA 2 lpm Assessment/Plan (1) Sepsis Current Visit: Yes Status: Acute Qualifiers: Severe sepsis acute organ dysfunction type: acute respiratory failure Acute respiratory failure type: with hypoxia Severe sepsis shock status: without septic shock Assessment & Plan: - CBC, CMP reviewed - BC x2 pending - Sputum culture pending - RR > 20, HR > 90 in ER - Fluid bolus x3 gave - IVF - LA on admission 3.8 at 03: 46, repeat LA 3.9 at 06:44- trend - Antibiotic IV - Chest CT reviewed - 2:2 Bronchitis - UA reviewed and negative - Tele (2) Bronchitis Current Visit: Yes Status: Acute Assessment & Plan: - CBC, CMP reviewed - BC x2 pending - Sputum culture pending - RR > 20, HR > 90 in ER - Fluid bolus x3 gave - IVF - LA on admission 3.8 at 03: 46, repeat LA 3.9 at 06:44- trend- + sepsis - Antibiotic IV, Duoneb, Advair, steroids - Chest CT reviewed IMPRESSION: 1. 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 - 2lNC 93% - UA reviewed and negative - CXR in AM - Tele Code(s): J40 - BRONCHITIS, NOT SPECIFIED ACUTE OR CHRONIC (3) Dehydration Current Visit: Yes Status: Acute Assessment & Plan: - Anion gap 15.1 - IVF Code(s): E86.0 - DEHYDRATION (4) HTN (hypertension) Current Visit: Yes Status: Acute Qualifiers: Hypertension type: primary hypertension Qualified Code(s): I10 - Essential (primary) hypertension Assessment & Plan: - Acute on chronic - BP elevated as had not taken home med - Home med resumed- trend BP Code(s): I10 - ESSENTIAL (PRIMARY) HYPERTENSION (5) Obesity (BMI 30-39.9) Current Visit: Yes Status: Chronic Assessment & Plan: - Advised diet and exercise control Code(s): E66.9 - OBESITY, UNSPECIFIED (6) Alcohol use Current Visit: Yes Status: Chronic Assessment & Plan: - Alcohol withdrawal protocol - Pt admits to 1-2 bottles of wine about 4 times per week. - Advised cutting back and trying to stop VTE: Lovenox PPI: Protonix Next of KIN: Spouse - [phone] D/C plan: 1-2 days Code status: Full Code(s): F10.90 - ALCOHOL USE, UNSPECIFIED, UNCOMPLICATED
[2025-02-21] MEDS: TYLENOL 325 MG PO PRN (11:20)
[2025-02-21] MEDS: Ativan 2 MG/1 ML VIAL IV PRN (18:20)
[2025-02-21] MEDS: Advair Hfa 115/21 Common canister IH SCH (18:45)
[2025-02-21] MEDS: solu-MEDROL 40 MG, Sterile H2O 10 ml 1 ML IV SCH (22:37)
[2025-02-21] MEDS: ROCEPHIN 1 GM / 100 ML NaCl 1 GM/100 ML IVPB IV SCH (22:37)
[2025-02-21] MEDS: APRESOLINE 20 MG/ML INJ IV PRN (23:13)
[2025-02-22 05:13] LABS: Hematocrit 38.1 % (34.1-44.9); Hemoglobin 12.6 g/dL (11.2-15.7); Mean Corpuscular Hemoglobin 30.9 pg (25.6-32.2); Mean Corpuscular Hgb Concent. 33.1 g/dL (32.2-35.5); Platelet Count 225 x10^3/uL (182-369); Red Blood Count 4.08 x10^6/uL (3.93-5.22); White Blood Count 6.3 x10^3/uL (3.98-10.04)
[2025-02-22] MEDS: Zofran 4 MG/2 ML VIAL IV PRN (05:19)
[2025-02-22 05:30] LABS: Calcium 8.8 mg/dL (8.4-10.2); Carbon Dioxide 25.0 mmol/L (22-30); Creatinine 1 0.46 mg/dL (0.52-1.04); EST GLOMERULAR FILTRATION RATE 110.2 ML/MIN; Glucose 163.0 mg/dL (74-106); Potassium 4.1 mmol/L (3.5-5.1); SGOT/AST 38.0 U/L (14-36); SGPT/ALT 32.0 U/L (0-35); Total Protein 7.2 g/dL (6.3-8.2)
[2025-02-22] MEDS: ENOXAPARIN SODIUM SQ SCH (09:17)
[2025-02-22] MEDS: Protonix 20MG Tablet PO SCH (09:17)
--- NOTE | 2025-02-22 09:48 | XRAY ---
CLINICAL HISTORY: dyspnea COMPARISON: None. TECHNIQUE: Frontal view of the chest FINDINGS: The lungs are clear aside from the presence of a calcified granuloma in the right upper lobe. Heart and medius on structures are within normal limits. Bony thorax is unremarkable. IMPRESSION: No evidence of acute pulmonary disease. Electronically Signed by: Autumn Carrillo MD. (02/22/2025 09:45:45 EDT)
[2025-02-22 10:58] LABS: Iron 126 ug/dL (37-170); TIBC 365 ug/dL (265-462)
[2025-02-22] MEDS ORDERED: Lopressor 50 MG PO SCH (11:39)
[2025-02-22] MEDS: Lopressor 50 MG PO ONE (11:52)
--- NOTE | 2025-02-22 12:36 | PCM.NOTE ---
Date and Time: 02/22/25 1230 Subjective Assessment: 02/21/25 The patient is a 59-year-old female with a past medical history of hypertension, atrial fibrillation, depression, anxiety, and alcohol use (primarily wine), who presented to the emergency department with a 45 day history of cough and congestion. Her symptoms began with a sore throat, followed by chest soreness and a persistent cough that was initially nonproductive but has since become minimally productive with clear sputum. She reports continuous coughing that worsens when lying down, preventing her from sleeping. She also endorses subjective fevers and chills but denies known sick contacts. She has no history of coronary artery disease. In the emergency department, her blood pressure was elevated in the 190s, which she attributed to missing her evening dose of metoprolol. She met criteria for sepsis, with a repeat lactic acid of 3.9 at 6:44 a.m. She received two fluid boluses initially, and an additional bolus was ordered upon admission, along with continued IV fluids. Her anion gap was elevated at 15.5, consistent with dehydration. Chest CT was unremarkable for any acute findings. Blood cultures 2 are pending, and the urine culture has returned negative. Sputum culture is also pending. She was started on ceftriaxone for suspected bronchitis, and a repeat chest X-ray is planned for the morning. The patient is currently on 2 L nasal cannula for comfort, with coarse lung sounds on auscultation. Her condition and findings were discussed in detail with her, and she currently denies any further concerns. 02/22/25 The patient is resting in bed today and reports right upper quadrant abdominal pain. An ultrasound of the liver, gallbladder ordered. Labs including amylase an d lipase reviewed, all of which were non-concerning. The patient mentioned a history of elevated iron levels and requested repeat testing; current lab results were reviewed and found to be within normal limits. She continues to experience wheezing, and a repeat chest X-ray was obtained, which showed no acute findings. Due to ongoing respiratory symptoms, her steroid dosing was increased to TID. Her blood pressure is elevated today, and metoprolol was increased to 100 mg twice daily. Sputum and blood cultures remain pending. Her lactic acid level was 2.7 this morning, prompting the administration of two IV fluid boluses, with a repeat lactic acid level planned for 1600 today. The patient remains on the CIWA protocol for alcohol withdrawal, and an incentive spirometer has been added to her care plan. - Review of Systems Constitutional: Fatigue, Malaise, Other (facial flushing), No Fever, No Chills Eyes: No Symptoms Ears, Nose, & Throat: No Symptoms Respiratory: Cough, Short Of Breath, Wheezing Cardiac: No Chest Pain, No Edema, No Syncope Abdominal/Gastrointestinal: No Abdominal Pain, No Nausea, No Vomiting, No Diarrhea Genitourinary Symptoms: No Dysuria Musculoskeletal: No Back Pain, No Neck Pain Skin: No Rash Neurological: No Dizziness, No Focal Weakness, No Sensory Changes Psychological: No Symptoms Endocrine: No Symptoms Hematologic/Lymphatic: No Symptoms Immunological/Allergic: No Symptoms Objective Exam General Appearance: no apparent distress, alert, obese Neurologic Exam: alert, oriented x 3, cooperative, normal mood/affect, nml c erebellar function, sensation nml, No motor deficits Skin Exam: normal color, warm, dry Eye Exam: PERRL, EOMI, eyes nml inspection Ears, Nose, Throat Exam: normal ENT inspection, pharynx normal, moist mucous membranes Neck Exam: normal inspection, non-tender, supple, full range of motion Respiratory Exam: wheezing, No respiratory distress Cardiovascular Exam: regular rate/rhythm, normal heart sounds, tachycardia Gastrointestinal/Abdomen Exam: soft, No tenderness, No mass Extremity Exam: normal inspection, normal range of motion Back Exam: normal inspection, normal range of motion, No CVA tenderness, No vertebral tenderness Pelvic Exam: deferred Rectal Exam: deferred Objective Data Vital Signs: Vital Signs - 24 hr Temp Pulse Resp BP BP Pulse Ox 02/22/25 11:46 97.3 F 112 H 22 174/89 95 02/22/25 11:19 105 H 16 93 L 02/22/25 10:20 101 H 20 176/83 92 L 02/22/25 09:23 96 H 164/77 02/22/25 08:16 118 H 16 179/79 02/22/25 07:30 98.3 F 86 19 179/79 95 02/22/25 07:28 93 H 16 92 L 02/22/25 05:01 86 18 173/80 02/22/25 04:00 97.4 F 84 18 173/80 96 02/21/25 23:49 98.6 F 111 H 16 170/80 96 02/21/25 22:50 111 H 16 170/80 02/21/25 20:00 97.5 F 126 H 22 176/81 95 02/21/25 18:45 114 H 18 93 L 02/21/25 18:20 120 H 02/21/25 18:00 97.3 F 120 H 20 181/84 94 L 02/21/25 15:40 100 H 16 99 Pain Assessment - Last Documented Pain Intensity 3 Pain Scale Used 0-10 Pain Scale Intake and Output: Intake & Output 02/20/25 02/21/25 02/22/25 02/23/25 11:59 11:59 11:59 11:59 Intake Total 1500 2767 Balance 1500 2767 Weight 95.7 kg Lab Results: Lab Results-Last 24 Hours 02/22/25 02/22/25 02/22/25 Range/Units 05:03 05:03 05:03 WBC 6.3 (3.98-10.04) x10^3/uL RBC 4.08 (3.93-5.22) x10^6/uL Hgb 12.6 (11.2-15.7) g/dL Hct 38.1 (34.1-44.9) % MCV 93.4 (79.4-94.8) fL MCH 30.9 (25.6-32.2) pg MCHC 33.1 (32.2-35.5) g/dL RDW 13.3 (11.7-14.4) % Plt Count 225 (182-369) x10^3/uL MPV 10.5 (9.4-12.3) fL Sodium 140 (135-145) mmol/L Potassium 4.1 (3.5-5.1) mmol/L Chloride 105 (98-107) mmol/L Carbon Dioxide 25 (22-30) mmol/L Anion Gap 14.3 (5-15) MEQ/L BUN 9 (7-17) mg/dL Creatinine 0.46 L (0.52-1.04) mg/dL Estimated GFR 110.2 ML/MIN Glucose 163 H (74-106) mg/dL Lactic Acid (0.4-2.0) Calcium 8.8 (8.4-10.2) mg/dL Iron (37-170) ug/dL TIBC (265-462) ug/dL Iron Saturation (20-39) % Total Bilirubin 0.50 (0.2-1.3) mg/dL AST 38 H (14-36) U/L ALT 32 (0-35) U/L Alkaline Phosphatase 107 (38-126) U/L Serum Total Protein 7.2 (6.3-8.2) g/dL Albumin 4.2 (3.5-5.0) g/dL Amylase 64 (30-110) U/L Lipase 102 (23-300) U/L 02/22/25 02/22/25 Range/Units 05:03 05:10 WBC (3.98-10.04) x10^3/uL RBC (3.93-5.22) x10^6/uL Hgb (11.2-15.7) g/dL Hct (34.1-44.9) % MCV (79.4-94.8) fL MCH (25.6-32.2) pg MCHC (32.2-35.5) g/dL RDW (11.7-14.4) % Plt Count (182-369) x10^3/uL MPV (9.4-12.3) fL Sodium (135-145) mmol/L Potassium (3.5-5.1) mmol/L Chloride (98-107) mmol/L Carbon Dioxide (22-30) mmol/L Anion Gap (5-15) MEQ/L BUN (7-17) mg/dL Creatinine (0.52-1.04) mg/dL Estimated GFR ML/MIN Glucose (74-106) mg/dL Lactic Acid 2.7 H (0.4-2.0) Calcium (8.4-10.2) mg/dL Iron 126 (37-170) ug/dL TIBC 365 (265-462) ug/dL Iron Saturation 35 (20-39) % Total Bilirubin (0.2-1.3) mg/dL AST (14-36) U/L ALT (0-35) U/L Alkaline Phosphatase (38-126) U/L Serum Total Protein (6.3-8.2) g/dL Albumin (3.5-5.0) g/dL Amylase (30-110) U/L Lipase (23-300) U/L Radiology Exams: Radiology Procedures Category Date Time Status CHEST 1 VIEW (PORTABLE) Routine Exams 02/22/25 08:00 Completed CHEST WITHOUT CONTRAST [CT] Stat Exams 02/21/25 03:44 Completed US ABDOMEN LIMITED [ABDOMINAL-LIMITED] [US] Routine Exams 02/22/25 09:42 Ordered Medications: Medications Generic Name Dose Route Start Last Admin Trade Name Freq PRN Reason Stop Dose Admin Acetaminophen 650 mg 02/21/25 11:10 02/22/25 08:15 Acetaminophen 325 Mg Tablet PO 03/23/25 11:09 650 mg Q6H PRN PRN Administration PAIN AND/OR FEVER Albuterol/Ipratropium 3 ml 02/21/25 11:00 02/22/25 11:15 Ipratropium/Albuterol Sulfate 3 Ml Ampul.Neb IH 03/23/25 10:59 3 ml QIDRT FELTON Administration Benzonatate 100 mg 02/21/25 08:44 02/22/25 08:16 Benzonatate 100 Mg Capsule PO 03/23/25 08:43 100 mg TID PRN PRN Administration COUGH Cholecalciferol 1,000 unit 02/21/25 10:00 02/22/25 09:17 Cholecalciferol (Vitamin D3) 1000 Unit Tablet PO 03/23/25 09:59 1,000 unit DAILY FELTON Administration Methylprednisolone Sodium 0 mg 02/21/25 22:00 02/22/25 09:17 Succinate 40 mg/ Sterile Water IV 03/23/25 21:59 40 mg 1 ml Q12HT FELTON Administration Enoxaparin Sodium 40 mg 02/22/25 10:00 02/22/25 09:17 Enoxaparin Sodium 40 Mg/0.4 Ml Syringe SQ 03/24/25 09:59 40 mg DAILY FELTON Administration Hydralazine HCl 10 mg 02/21/25 16:31 02/22/25 09:16 Hydralazine Hcl 20 Mg/Ml Vial IV 03/23/25 16:30 10 mg Q4H PRN PRN Administration HYPERTENSION Sodium Chloride 1,000 mls @ 100 mls/hr 02/21/25 08:45 02/22/25 10:19 Sodium Chloride 0.9% 1000 Ml IV 03/23/25 08:44 100 mls/hr .Q10H FELTON Administration Ceftriaxone Sodium 1 gm in 100 mls @ 200 mls/hr 02/21/25 22:00 02/21/25 22:37 Rocephin 1 Gm / 100 Ml Nacl IV 03/23/25 21:59 200 mls/hr Q24H22 FELTON Administration Lorazepam 0 mg 02/21/25 08:43 02/22/25 08:16 Lorazepam 2 Mg/1 Ml 2 Mg Vial IV 03/23/25 08:42 2 mg Q2H PRN PRN Administration CIWA SCORE Protocol Metoprolol Tartrate 100 mg 02/22/25 22:00 Metoprolol Tartrate 50 Mg Tablet PO 03/24/25 21:59 BID FELTON Ondansetron HCl 4 mg 02/22/25 05:14 02/22/25 05:19 Ondansetron Hcl 4 Mg/2 Ml Vial IV 03/24/25 05:13 4 mg Q6H PRN PRN Administration NAUSEA/VOMITING Pantoprazole Sodium 20 mg 02/22/25 10:00 02/22/25 09:17 Pantoprazole 20 Mg Tab PO 03/24/25 09:59 20 mg DAILY FELTON Administration Fluticasone/Salmeterol 2 puff 02/21/25 19:00 02/22/25 07:28 Fluticasone/Salmeterol 115/21 60 Puff Aer.W.Adap 03/23/25 18:59 2 puff BIDRT FELTON Administration Discontinued Medications Generic Name Dose Route Start Last Admin Trade Name Freq PRN Reason Stop Dose Admin Hydrocodone Bitart/Acetaminophen Confirm 02/21/25 04:35 Hydrocodone/Acetaminophen 5 Ml Udcup Administered 02/21/25 04:36 Dose 10 ml .ROUTE .STK-MED ONE Hydrocodone Bitart/Acetaminophen 10 ml 02/21/25 04:33 02/21/25 04:33 Hydrocodone/Acetaminophen 5 Ml Udcup PO 02/21/25 04:34 10 ml STAT STA Administration Albuterol/Ipratropium 3 ml 02/21/25 03:48 02/21/25 04:01 Ipratropium/Albuterol Sulfate 3 Ml Ampul.Neb IH 02/21/25 03:49 3 ml STAT ONE Administration Albuterol/Ipratropium Confirm 02/21/25 03:58 Ipratropium/Albuterol Sulfate 3 Ml Ampul.Neb Administered 02/21/25 03:59 Dose 3 ml IH .STK-MED ONE Azithromycin Confirm 02/21/25 06:56 Azithromycin Inj Administered 02/21/25 06:57 Dose 500 mg IV .STK-MED ONE Methylprednisolone Sodium 0 mg 02/21/25 04:32 02/21/25 04:40 Succinate 125 mg/ Sterile IV 02/21/25 04:33 125 mg Water 2 ml STAT ONE Administration Sodium Chloride 1,000 mls @ 1,000 mls/hr 02/21/25 04:30 02/21/25 08:51 Sodium Chloride 0.9% 1000 Ml IV 03/23/25 04:29 Not Given .Q1H FELTON Ceftriaxone Sodium Confirm 02/21/25 04:35 Rocephin 2 Gm/100 Ml Nacl Administered 02/21/25 04:36 Dose 2 gm in 100 mls @ ud IV .STK-MED ONE Ceftriaxone Sodium 2 gm in 100 mls @ 200 mls/hr 02/21/25 04:30 02/21/25 05:10 Rocephin 2 Gm/100 Ml Nacl IV 02/21/25 04:59 Infused STAT ONE Infusion Azithromycin 500 mg/ Sodium 250 mls @ 250 mls/hr 02/21/25 06:53 02/21/25 07:02 Chloride IV 02/21/25 07:52 250 mls/hr STAT STA 250 mls/hr Administration Sodium Chloride Confirm 02/21/25 06:56 Sodium Chloride 0.9% 250 Ml Administered 02/21/25 06:57 Dose 250 mls @ ud IV .STK-MED ONE Sodium Chloride 1,000 mls @ 999 mls/hr 02/21/25 07:04 02/21/25 08:52 Sodium Chloride 0.9% 1000 Ml IV 02/21/25 08:04 Not Given .Q1H1M STA Sodium Chloride 1,000 mls @ 999 mls/hr 02/21/25 07:05 02/21/25 08:52 Sodium Chloride 0.9% 1000 Ml IV 02/21/25 08:05 Not Given .Q1H1M STA Sodium Chloride Confirm 02/21/25 07:00 Sodium Chloride 0.9% 1000 Ml Administered 02/21/25 07:01 Dose 1,000 mls @ ud .ROUTE .STK-MED ONE Sodium Chloride Confirm 02/21/25 07:00 Sodium Chloride 0.9% 1000 Ml Administered 02/21/25 07:01 Dose 1,000 mls @ ud .ROUTE .STK-MED ONE Sodium Chloride 1,000 mls @ 999 mls/hr 02/21/25 08:40 02/21/25 11:21 Sodium Chloride 0.9% 1000 Ml IV 02/21/25 09:40 999 mls/hr .Q1H1M STA Administration Sodium Chloride 1,000 mls @ 999 mls/hr 02/22/25 07:57 02/22/25 08:15 Sodium Chloride 0.9% 1000 Ml IV 02/22/25 08:57 999 mls/hr .Q1H1M STA Administration Sodium Chloride 1,000 mls @ 999 mls/hr 02/22/25 07:58 02/22/25 09:19 Sodium Chloride 0.9% 1000 Ml IV 02/22/25 08:58 999 mls/hr .Q1H1M STA Administration Labetalol HCl 10 mg 02/21/25 04:31 02/21/25 04:41 Labetalol Hcl 100 Mg/20 Ml Mdv IV 02/21/25 04:32 10 mg ONCE ONE Administration Labetalol HCl Confirm 02/21/25 04:33 Labetalol Hcl 100 Mg/20 Ml Mdv Administered 02/21/25 04:34 Dose 100 mg IV .STK-MED ONE Lorazepam 0.5 mg 02/21/25 07:22 02/21/25 07:28 Lorazepam 2 Mg/1 Ml 2 Mg Vial IV 02/21/25 07:23 0.5 mg STAT ONE Administration Lorazepam 1 mg 02/21/25 07:23 02/21/25 07:49 Lorazepam 2 Mg/1 Ml 2 Mg Vial IV 02/21/25 07:24 Not Given STAT ONE Lorazepam Confirm 02/21/25 07:27 Lorazepam 2 Mg/1 Ml 2 Mg Vial Administered 02/21/25 07:28 Dose 2 mg .ROUTE .STK-MED ONE Methylprednisolone Sodium Succinate Confirm 02/21/25 04:34 Methylprednis Sod Succ 125 Mg/2 Ml Vial Administered 02/21/25 04:35 Dose 125 mg .ROUTE .STK-MED ONE Metoprolol Tartrate 50 mg 02/21/25 10:00 02/22/25 08:16 Metoprolol Tartrate 50 Mg Tablet PO 03/23/25 09:59 50 mg BID FELTON Administration Metoprolol Tartrate 100 mg 02/22/25 11:39 Metoprolol Tartrate 50 Mg Tablet PO 03/23/25 09:59 BID FELTON Metoprolol Tartrate 50 mg 02/22/25 11:40 02/22/25 11:52 Metoprolol Tartrate 50 Mg Tablet PO 02/22/25 11:41 50 mg STAT ONE Administration Ondansetron HCl 4 mg 02/21/25 07:17 02/21/25 07:19 Ondansetron Hcl 4 Mg/2 Ml Vial IV 02/21/25 07:18 4 mg STAT ONE Administration Ondansetron HCl Confirm 02/21/25 07:18 Ondansetron Hcl 4 Mg/2 Ml Vial Administered 02/21/25 07:19 Dose 4 mg .ROUTE .STK-MED ONE Sterile Water Confirm 02/21/25 04:32 Water For Injection,Sterile 10 Ml Vial Administered 02/21/25 04:33 Dose 10 ml IJ .STK-MED ONE Multi-Disciplinary Progress Notes: Multi-Disciplinary Progress Notes 02/22/25 12:25 Case Management Note by Carlie Andrade S/W PATIENT- SHE CONTINUES TO DENY ANY NEW NEEDS AT TIME OF DC. SHE REPORTS HER SPOUSE CAN ASSIST HER AT HOME IF NEEDED. PATIENT CURRENTLY REQUIRING 2L/NC- IF OXYGEN NEEDED AT DC- PATIENT WOULD LIKE TO USE LINCARE Initialized on 02/22/25 12:25 - END OF NOTE Assessment/Plan (1) Sepsis Current Visit: Yes Status: Acute Qualifiers: Severe sepsis acute organ dysfunction type: acute respiratory failure Acute respiratory failure type: with hypoxia Severe sepsis shock status: without septic shock (2) Bronchitis Current Visit: Yes Status: Acute Code(s): J40 - BRONCHITIS, NOT SPECIFIED ACUTE OR CHRONIC (3) Dehydration Current Visit: Yes Status: Acute Code(s): E86.0 - DEHYDRATION (4) HTN (hypertension) Current Visit: Yes Status: Acute Qualifiers: Hypertension type: primary hypertension Qualified Code(s): I10 - Essential (primary) hypertension Code(s): I10 - ESSENTIAL (PRIMARY) HYPERTENSION (5) Obesity (BMI 30-39.9) Current Visit: Yes Status: Chronic Code(s): E66.9 - OBESITY, UNSPECIFIED (6) Alcohol use Current Visit: Yes Status: Chronic Assessment & Plan: (1) Sepsis Current Visit: Yes Status: Acute Qualifiers: Severe sepsis acute organ dysfunction type: acute respiratory failure Acute respiratory failure type: with hypoxia Severe sepsis shock status: without septic shock Assessment & Plan: - CBC, CMP reviewed - BC x2 pending - Sputum culture pending - RR > 20, HR > 90 in ER - Fluid bolus x3 gave - IVF - LA on admission 3.8 at 03: 46, repeat LA 3.9 at 06:44- trend - Antibiotic IV - Chest CT reviewed - 2:2 Bronchitis - UA reviewed and negative - Tele 02/22 - LA 2.7- 2 more 1 L fluid boluses ordered - Repeat LA at 1600 - IVF - CBC, CMP reviewed - + tachycardia - Flu/COVID/RSV negative (2) Bronchitis Current Visit: Yes Status: Acute Assessment & Plan: - CBC, CMP reviewed - BC x2 pending - Sputum culture pending - RR > 20, HR > 90 in ER - Fluid bolus x3 gave - IVF - LA on admission 3.8 at 03: 46, repeat LA 3.9 at 06:44- trend- + sepsis - Antibiotic IV, Duoneb, Advair, steroids - Chest CT reviewed IMPRESSION: 1. 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 - 2lNC 93% - UA reviewed and negative - CXR in AM - Tele 02/22 - IS - 2L 95% - + continued wheezing - CBC, CMP reviewed - Repeat CXR negative Code(s): J40 - BRONCHITIS, NOT SPECIFIED ACUTE OR CHRONIC (3) Dehydration Current Visit: Yes Status: Acute Assessment & Plan: - Anion gap 15.1 - IVF 02/22 - resolved Code(s): E86.0 - DEHYDRATION (4) HTN (hypertension) Current Visit: Yes Status: Acute Qualifiers: Hypertension type: primary hypertension Qualified Code(s): I10 - Essential (primary) hypertension Assessment & Plan: - Acute on chronic - BP elevated as had not taken home med - Home med resumed- trend BP - PRN IV med for HTN 02/22 - Increased metoprolol to 100mg BID Code(s): I10 - ESSENTIAL (PRIMARY) HYPERTENSION (5) Obesity (BMI 30-39.9) Current Visit: Yes Status: Chronic Assessment & Plan: - Advised diet and exercise control Code(s): E66.9 - OBESITY, UNSPECIFIED (6) Alcohol use Current Visit: Yes Status: Chronic Assessment & Plan: - Alcohol withdrawal protocol - Pt admits to 1-2 bottles of wine about 4 times per week. - Advised cutting back and trying to stop Code(s): F10.90 - ALCOHOL USE, UNSPECIFIED, UNCOMPLICATED Code(s): F10.90 - ALCOHOL USE, UNSPECIFIED, UNCOMPLICATED (7) RUQ abdominal pain Current Visit: Yes Status: Acute Assessment & Plan: - US RUQ - Amylase and Lipase: non-concerning - AST 38, ALT 32 - Colace PRN Code(s): R10.11 - RIGHT UPPER QUADRANT PAIN (8) Abnormal blood level of iron Current Visit: Yes Status: Chronic Assessment & Plan: - Pt reports an elevated iron level hx - Iron panel checked today per pt request and all labs non-concerning. - Hgb 10.3 VTE: Lovenox PPI: Protonix Next of KIN: Spouse - [phone] D/C plan: 1-2 days Code status: Full Mgnt and plan of care time: > 45 minutes Code(s): R79.0 - ABNORMAL LEVEL OF BLOOD MINERAL
[2025-02-22] MEDS ORDERED: Docusate Sodium 100 MG PO PRN (12:46)
[2025-02-22 12:48] LABS: Ferritin 33.7 ng/mL (11.1-264)
[2025-02-22] MEDS: solu-MEDROL 40 MG, Sterile H2O 10 ml 1 ML IV SCH (13:37)
[2025-02-22] MEDS: Ativan 20 MG/10 ML MDV IV PRN (15:34)
--- NOTE | 2025-02-22 16:31 | XRAY ---
CLINICAL HISTORY: abd pain COMPARISON: No prior studies available for comparison. TECHNIQUE: CT of the abdomen and pelvis was performed without contrast, with the following protocol: axial images with, and reconstructed coronal and sagittal images. One of the following dose reduction techniques was utilized for this exam: Automated exposure control, adjustment of the mA and/or kV according to patient size, and use of iterative reconstruction. CTDI: 18.49 mGy, DLP: 1039.00 mGy.cm FINDINGS: Abdomen: Liver: Is enlarged measure is about 20 cm, showing normal shape and density. No focal lesions, cysts, or masses were identified. Gallbladder and Biliary System: The gallbladder is normal in size and shape. No wall thickening, pericholecystic fluid, or gallstones were identified. The common bile duct is normal in caliber without dilation. Pancreas: The pancreatic head, body, and tail are visualized and appear normal in size and density. No pancreatic masses or calcifications were noted. The pancreatic duct is not dilated. Spleen: Normal in size, shape, and density. No splenic lesions or masses were identified. tiny calcific foci along the spleen of average size 1 mm, suggesting old granulomas Appendix: can not be traced yet, no right iliac fossa inflammatory changes. Kidneys and Adrenal Glands: Both kidneys are normal in size, shape, and position. Cortical thickness is within normal limits. Bilateral renal peripelvic cysts. No renal calculi. Adrenal glands are unremarkable with no evidence of masses or hyperplasia. Pelvis: Urinary Bladder: Normal in contour and wall thickness. No intraluminal lesions identified. Uterus: It is small in size, yet no focal lesions. Ovaries: Not well visualized, but no gross abnormalities noted. Peritoneal and Retroperitoneal Structures: No free fluid or abnormal fluid collections were identified within the abdomen or pelvis. No lymphadenopathy was noted. Bowel: A hypersense linear surgical material/suture along the lesser curvature of the stomach is seen, and needs correction with the patient's operative date Multiple colonic diverticula with no signs of inflammatory changes The visualized bowel loops are normal in caliber and appearance. No evidence of bowel obstruction. Anterior abdominal wall: subcutaneous focal emphysematous changes/small air foci at the left lower pelvic wall, with no surrounding localized fluid collection or smudging the fat planes, needs correlation with the patient's previous intervention/subcutaneous medications Bones and Soft Tissues: Spondylotic changes of the lumbar spine associated with multilevel facet joint arthropathy No acute fractures or abnormal masses were identified. Lower chest cuts: hiatus hernia is noted. IMPRESSION: 1. No evidence of acute intra-abdominal pathology. 2. Hepatomegaly 3. Multiple colonic diverticula with no signs of inflammatory changes 4. Anterior abdominal wall: subcutaneous focal emphysematous changes/small air foci at the left lower pelvic wall, with no surrounding localized fluid collection or smudging the fat planes, needs correlation with the patient's previous intervention/subcutaneous medications 5. Hiatus hernia is noted. Electronically Signed by: Dar Majano MD. (02/22/2025 16:29:05 EDT)
--- NOTE | 2025-02-22 17:07 | XRAY ---
Indication: Right upper quadrant pain. Two-dimensional right upper quadrant abdominal sonogram performed. Comparison: None Pancreas not well-seen due to overlying bowel gas. Visualized gallbladder is distended. No gallstones, wall thickening, or pericholecystic fluid. Common bile duct measures 4.9 mm. No intrahepatic biliary distention. Remaining visualized liver is enlarged measuring 22.4 cm. No focal solid/cystic hepatic mass or ascites. Right kidney measures 11.7 x 5.1 x 4.9 cm cm with mild extrarenal pelvis. No focal solid/cystic renal mass. Impression: Nonvisualization pancreas. Distended gallbladder without cholelithiasis/cholecystitis. Hepatomegaly.
[2025-02-22] MEDS: Sodium Chloride 3 ML UD NEBULES IH SCH (19:18)
[2025-02-22] MEDS: Xopenex 1.25 MG/0.5 ML UD NEBULE IH SCH (19:18)
[2025-02-22] MEDS: Lopressor 50 MG PO SCH (21:52)
[2025-02-23] MEDS ORDERED: DUONEB 0.5-3 MG/3 ml Neb IH SCH (01:00)
[2025-02-23] MEDS: DUONEB 0.5-3 MG/3 ml Neb IH PRN (01:25)
[2025-02-23 04:19] VITALS: TEMP 98.6
[2025-02-23 06:25] LABS: Hematocrit 34.7 % (34.1-44.9); Hemoglobin 11.3 g/dL (11.2-15.7); Mean Corpuscular Hemoglobin 31.4 pg (25.6-32.2); Mean Corpuscular Hgb Concent. 32.6 g/dL (32.2-35.5); Platelet Count 205 x10^3/uL (182-369); Red Blood Count 3.60 x10^6/uL (3.93-5.22); White Blood Count 8.1 x10^3/uL (3.98-10.04)
[2025-02-23 06:28] LABS: Calcium 8.2 mg/dL (8.4-10.2); Carbon Dioxide 23.0 mmol/L (22-30); Creatinine 1 0.53 mg/dL (0.52-1.04); EST GLOMERULAR FILTRATION RATE 106.5 ML/MIN; Glucose 154.0 mg/dL (74-106); Potassium 3.8 mmol/L (3.5-5.1); SGOT/AST 28.0 U/L (14-36); SGPT/ALT 27.0 U/L (0-35); Total Protein 6.1 g/dL (6.3-8.2)
--- NOTE | 2025-02-23 07:10 | XRAY ---
CLINICAL HISTORY: SOB COMPARISON: CXR on 02/22/2025 TECHNIQUE: An X-ray image of the chest is obtained in AP projection. FINDINGS: Pulmonary Parenchyma: Bilateral prominent vascular markings may represent a sign of pulmonary congestion (unchanged). Unchanged bilateral hilar dense nodules and right apical dense nodules. No evidence of consolidation, collapse, or focal opacities. No evidence of pleural effusion or pleural thickening. Heart and Mediastinum: Mildly enlarged heat shadow. No mediastinal widening or masses. No hilar or mediastinal lymphadenopathy. Bony Thorax: Bony thorax appears intact without fractures or deformities. Soft Tissues: Soft tissues overlying the chest wall are unremarkable. IMPRESSION: 1. Unchanged bilateral hilar dense nodules and right apical dense nodule (likely to represent granulomas). 2. No acute cardiopulmonary abnormalities are identified. 3. No interval changes. Electronically Signed by: Dar Majano MD. (02/23/2025 07:06:57 EDT)
[2025-02-23] MEDS ORDERED: DUONEB 0.5-3 MG/3 ml Neb IH PRN (07:11)
[2025-02-23 07:35] VITALS: RESP 19
[2025-02-23 09:02] VITALS: BP 146/72; PULSE 98
[2025-02-23 09:41] VITALS: O2SAT 95
--- NOTE | 2025-02-23 10:33 | PCM.DS ---
Discharge Summary Date of Admission: 02/21/25 07:43 Date of Discharge: 02/23/25 Admitting Physician: EDUARDO LAGUNAS MD Primary Care Provider: STEVE FOSS Allergies Allergies No Known Drug Allergies Allergy (Verified 02/21/25 07:53) Hospital Summary - Hospital Course Hospital Course: 02/21/25 The patient is a 59-year-old female with a past medical history of hypertension, atrial fibrillation, depression, anxiety, and alcohol use (primarily wine), who presented to the emergency department with a 45 day history of cough and congestion. Her symptoms began with a sore throat, followed by chest soreness and a persistent cough that was initially nonproductive but has since become minimally productive with clear sputum. She reports continuous coughing that worsens when lying down, preventing her from sleeping. She also endorses subjective fevers and chills but denies known sick contacts. She has no history of coronary artery disease. In the emergency department, her blood pressure was elevated in the 190s, which she attributed to missing her evening dose of metoprolol. She met criteria for sepsis, with a repeat lactic acid of 3.9 at 6:44 a.m. She received two fluid boluses initially, and an additional bolus was ordered upon admission, along with continued IV fluids. Her anion gap was elevated at 15.5, consistent with dehydration. Chest CT was unremarkable for any acute findings. Blood cultures 2 are pending, and the urine culture has returned negative. Sputum culture is also pending. She was started on ceftriaxone for suspected bronchitis, and a repeat chest X-ray is planned for the morning. The patient is currently on 2 L nasal cannula for comfort, with coarse lung sounds on auscultation. Her condition and findings were discussed in detail with her, and she currently denies any further concerns. 02/22/25 The patient is resting in bed today and reports right upper quadrant abdominal pain. An ultrasound of the liver, gallbladder ordered. Labs including amylase and lipase reviewed, all of which were non-concerning. The patient mentioned a history of elevated iron levels and requested repeat testing; current lab results were reviewed and found to be within normal limits. She continues to experience wheezing, and a repeat chest X-ray was obtained, which showed no acute findings. Due to ongoing respiratory symptoms, her steroid dosing was increased to TID. Her blood pressure is elevated today, and metoprolol was increased to 100 mg twice daily. Sputum and blood cultures remain pending. Her lactic acid level was 2.7 this morning, prompting the administration of two IV fluid boluses, with a repeat lactic acid level planned for 1600 today. The patient remains on the [facility] protocol for alcohol withdrawal, and an incentive spirometer has been added to her care plan. 02/23/25 The patient is resting in bed today and reports feeling much better, expressing a desire to go home. Her lung sounds are clear, and she states that her right upper quadrant abdominal pain has improved, now only occurring with coughing. She is not producing any sputum. Laboratory results show overall improvement, and her blood pressure has responded well to the increased medication dose. She was advised to monitor her blood pressure at home using her personal cuff, record it once or twice daily, and bring the log to her primary care provider. She will continue steroids, antibiotics, and her albuterol inhaler as needed on discharge. The patient also reports ongoing weakness and has requested time off work; a note has been provided for medical leave until early next week. - Vitals & Intake/Output Vital Signs: Vital Signs Temperature 98.6 F 02/23/25 07:33 Pulse Rate 98 H 02/23/25 09:01 Respiratory Rate 19 02/23/25 07:33 Blood Pressure 146/72 02/23/25 09:01 O2 Sat by Pulse Oximetry 95 02/23/25 09:41 Intake & Output: Intake & Output 02/20/25 02/21/25 02/22/25 02/23/25 11:59 11:59 11:59 11:59 Intake Total 1500 2767 5760 Output Total 300 Balance 1500 2767 5460 Weight 95.7 kg - Lab Result Diagrams: 02/23/25 05:52 02/23/25 05:52 Lab Results-Last 24 Hrs: Lab Results-Last 24 Hours 02/22/25 02/22/25 02/22/25 Range/Units 05:03 05:03 09:49 WBC (3.98-10.04) x10^3/uL RBC (3.93-5.22) x10^6/uL Hgb (11.2-15.7) g/dL Hct (34.1-44.9) % MCV (79.4-94.8) fL MCH (25.6-32.2) pg MCHC (32.2-35.5) g/dL RDW (11.7-14.4) % Plt Count (182-369) x10^3/uL MPV (9.4-12.3) fL Sodium (135-145) mmol/L Potassium (3.5-5.1) mmol/L Chloride (98-107) mmol/L Carbon Dioxide (22-30) mmol/L Anion Gap (5-15) MEQ/L BUN (7-17) mg/dL Creatinine (0.52-1.04) mg/dL Estimated GFR ML/MIN Glucose (74-106) mg/dL Lactic Acid (0.4-2.0) Calcium (8.4-10.2) mg/dL Iron 126 (37-170) ug/dL TIBC 365 (265-462) ug/dL Iron Saturation 35 (20-39) % Ferritin 33.7 (11.1-264) ng/mL Total Bilirubin (0.2-1.3) mg/dL AST (14-36) U/L ALT (0-35) U/L Alkaline Phosphatase (38-126) U/L Serum Total Protein (6.3-8.2) g/dL Albumin (3.5-5.0) g/dL Amylase 64 (30-110) U/L Lipase 102 (23-300) U/L Vitamin B12 405 (239-931) pg/mL Folic Acid 7.97 (2.76 - >20) ng/mL 02/22/25 02/23/25 02/23/25 Range/Units 16:05 05:52 05:52 WBC 8.1 (3.98-10.04) x10^3/uL RBC 3.60 L (3.93-5.22) x10^6/uL Hgb 11.3 (11.2-15.7) g/dL Hct 34.7 (34.1-44.9) % MCV 96.4 H (79.4-94.8) fL MCH 31.4 (25.6-32.2) pg MCHC 32.6 (32.2-35.5) g/dL RDW 13.4 (11.7-14.4) % Plt Count 205 (182-369) x10^3/uL MPV 11.0 (9.4-12.3) fL Sodium 139 (135-145) mmol/L Potassium 3.8 (3.5-5.1) mmol/L Chloride 108 H (98-107) mmol/L Carbon Dioxide 23 (22-30) mmol/L Anion Gap 10.9 (5-15) MEQ/L BUN 16 (7-17) mg/dL Creatinine 0.53 (0.52-1.04) mg/dL Estimated GFR 106.5 ML/MIN Glucose 154 H (74-106) mg/dL Lactic Acid 1.5 (0.4-2.0) Calcium 8.2 L (8.4-10.2) mg/dL Iron (37-170) ug/dL TIBC (265-462) ug/dL Iron Saturation (20-39) % Ferritin (11.1-264) ng/mL Total Bilirubin 0.20 (0.2-1.3) mg/dL AST 28 (14-36) U/L ALT 27 (0-35) U/L Alkaline Phosphatase 81 (38-126) U/L Serum Total Protein 6.1 L (6.3-8.2) g/dL Albumin 3.5 (3.5-5.0) g/dL Amylase (30-110) U/L Lipase (23-300) U/L Vitamin B12 (239-931) pg/mL Folic Acid (2.76 - >20) ng/mL Micro Results-Entire Visit: Microbiology 02/21/25 04:12 Blood Culture - Preliminary Blood 02/21/25 04:00 Blood Culture - Preliminary Blood - Radiology Exams Ordered Rad Exams-Entire Visit: Radiology Procedures Category Date Time Status ABDOMEN AND PELVIS W/0 CONTRAS [CT] Stat Exams 02/22/25 14:48 Completed CHEST 1 VIEW (PORTABLE) Routine Exams 02/22/25 08:00 Completed CHEST 1 VIEW (PORTABLE) Stat Exams 02/23/25 06:12 Completed US ABDOMEN LIMITED [ABDOMINAL-LIMITED] [US] Routine Exams 02/22/25 09:42 Completed - Procedures and Test Procedures and Tests throughout Hospitalization: Therapy Orders & Screens 02/21/25 04:01 Respiratory Therapy Assessment DAILY Comment: 02/21/25 10:56 Oxygen NASAL CANNULA 2 lpm Comment: Diagnosis: Sepsis/bronchitis 02/22/25 11:19 Incentive Spirometry UD Comment: Diagnosis: Sepsis/bronchitis 02/23/25 07:47 RT Miscellaneous Order ROUTINE Comment: Physician Instructions: Reason For Exam: wean off O2, baseline RA Diagnosis: Sepsis/bronchitis Discharge Exam General Appearance: no apparent distress, alert Neurologic Exam: alert, oriented x 3, cooperative, normal mood/affect, nml cerebellar function, sensation nml, No motor deficits Eye Exam: PERRL, EOMI, eyes nml inspection Ears, Nose, Throat Exam: normal ENT inspection, pharynx normal, moist mucous membranes Neck Exam: normal inspection, non-tender, supple, full range of motion Respiratory Exam: normal breath sounds, lungs clear, No respiratory distress Cardiovascular Exam: regular rate/rhythm, normal heart sounds Gastrointestinal/Abdomen Exam: soft, tenderness (RUQ), No mass Pelvic Exam: deferred Rectal Exam: deferred Back Exam: normal inspection, normal range of motion, No CVA tenderness, No vertebral tenderness Extremity Exam: normal inspection, normal range of motion Skin Exam: normal color, warm, dry Final Diagnosis/Problem List - Final Discharge Diagnosis/Problem (1) Sepsis Current Visit: Yes Status: Acute (2) Bronchitis Current Visit: Yes Status: Acute Code(s): J40 - BRONCHITIS, NOT SPECIFIED ACUTE OR CHRONIC (3) Dehydration Current Visit: Yes Status: Acute Code(s): E86.0 - DEHYDRATION (4) HTN (hypertension) Current Visit: Yes Status: Acute Code(s): I10 - ESSENTIAL (PRIMARY) HYPERTENSION (5) Obesity (BMI 30-39.9) Current Visit: Yes Status: Chronic Code(s): E66.9 - OBESITY, UNSPECIFIED (6) Alcohol use Current Visit: Yes Status: Chronic Code(s): F10.90 - ALCOHOL USE, UNSPECIFIED, UNCOMPLICATED (7) RUQ abdominal pain Current Visit: Yes Status: Acute Code(s): R10.11 - RIGHT UPPER QUADRANT PAIN (8) Abnormal blood level of iron Current Visit: Yes Status: Chronic Assessment & Plan: (1) Sepsis Current Visit: Yes Status: Acute Qualifiers: Severe sepsis acute organ dysfunction type: acute respiratory failure Acute respiratory failure type: with hypoxia Severe sepsis shock status: without septic shock Assessment & Plan: - CBC, CMP reviewed - BC x2 pending - Sputum culture pending - RR > 20, HR > 90 in ER - Fluid bolus x3 gave - IVF - LA on admission 3.8 at 03: 46, repeat LA 3.9 at 06:44- trend - Antibiotic IV - Chest CT reviewed - 2:2 Bronchitis - UA reviewed and negative - Tele 02/22 - LA 2.7- 2 more 1 L fluid boluses ordered - Repeat LA at 1600 - IVF - CBC, CMP reviewed - + tachycardia - Flu/COVID/RSV negative (2) Bronchitis Current Visit: Yes Status: Acute Assessment & Plan: - CBC, CMP reviewed - BC x2 pending - Sputum culture pending - RR > 20, HR > 90 in ER - Fluid bolus x3 gave - IVF - LA on admission 3.8 at 03: 46, repeat LA 3.9 at 06:44- trend- + sepsis - Antibiotic IV, Duoneb, Advair, steroids - Chest CT reviewed IMPRESSION: 1. 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 - 2lNC 93% - UA reviewed and negative - CXR in AM - Tele 02/22 - IS - 2L 95% - + continued wheezing - CBC, CMP reviewed - Repeat CXR negative 02/23 - D/C with oral antibiotic, steroid, and albuterol inhaler - Note provided to be off work - Weaned off oxygen - Walk test with RT- no concerns Code(s): J40 - BRONCHITIS, NOT SPECIFIED ACUTE OR CHRONIC (3) Dehydration Current Visit: Yes Status: Acute Assessment & Plan: - Anion gap 15.1 - IVF 02/22 - resolved Code(s): E86.0 - DEHYDRATION (4) HTN (hypertension) Current Visit: Yes Status: Acute Qualifiers: Hypertension type: primary hypertension Qualified Code(s): I10 - Essential (primary) hypertension Assessment & Plan: - Acute on chronic - BP elevated as had not taken home med - Home med resumed- trend BP - PRN IV med for HTN 02/22 - Increased metoprolol to 100mg BID Code(s): I10 - ESSENTIAL (PRIMARY) HYPERTENSION (5) Obesity (BMI 30-39.9) Current Visit: Yes Status: Chronic Assessment & Plan: - Advised diet and exercise control Code(s): E66.9 - OBESITY, UNSPECIFIED (6) Alcohol use Current Visit: Yes Status: Chronic Assessment & Plan: - Alcohol withdrawal protocol - Pt admits to 1-2 bottles of wine about 4 times per week. - Advised cutting back and trying to stop Code(s): F10.90 - ALCOHOL USE, UNSPECIFIED, UNCOMPLICATED (7) RUQ abdominal pain Current Visit: Yes Status: Acute Assessment & Plan: - US RUQ - Amylase and Lipase: non-concerning - AST 38, ALT 32 - Colace PRN - US RUQ: Impression: Nonvisualization pancreas. Distended gallbladder without cholelithiasis/cholecystitis. Hepatomegaly. - CT abd/pelvis: 1. No evidence of acute intra-abdominal pathology. 2. Hepatomegaly 3. Multiple colonic diverticula with no signs of inflammatory changes 4. Anterior abdominal wall: subcutaneous focal emphysematous changes/small air foci at the left lower pelvic wall, with no surrounding localized fluid collection or smudging the fat planes, needs correlation with the patient's previous intervention/subcutaneous medications 5. Hiatus hernia is noted. 8/2 - Pt reports RUQ pain only with deep breath - May need OP HIDA scan Code(s): R10.11 - RIGHT UPPER QUADRANT PAIN (8) Abnormal blood level of iron Current Visit: Yes Status: Chronic Assessment & Plan: - Pt reports an elevated iron level hx - Iron panel checked today per pt request and all labs non-concerning. - Hgb 10.3 D/C plan of care time: > 34 minutes Code(s): R79.0 - ABNORMAL LEVEL OF BLOOD MINERAL Code(s): R79.0 - ABNORMAL LEVEL OF BLOOD MINERAL - Discharge Discharge Date: 02/23/25 Disposition: Home, Self-Care Condition: Stable Prescriptions: Continue Metoprolol Tartrate 50 mg PO BID Cholecalciferol (Vitamin D3) [Vitamin D3] 25 mcg PO DAILY Instructions: Sepsis in adults - Discharge instructions Additional Instructions: Keep a blood pressure log and take it to your follow up appointment. Follow up with: NELLY RUTHERFORD FNP [[employer] [facility] PROFESSION STAFF, FAMILY PRACTICE] - 03/01/25 9:40 am Forms: Discharge Instructions, Work/School Release Form
[2025-02-23] MEDS ORDERED: Xopenex 1.25 MG/0.5 ML UD NEBULE IH SCH (13:00)
== END 2025-02-23 12:02 | disposition home or self-care (01) ==
LOC: ED 03:18 → MED SURG 07:43
PROVIDERS: ADMIT Internal Medicine; ATTEND Internal Medicine
DX: A41.9 Sepsis, unspecified organism (principal); J40 Bronchitis, not specified as acute or chronic; E86.0 Dehydration; I10 Essential (primary) hypertension; E66.9 Obesity, unspecified; F10.90 Alcohol use, unspecified, uncomplicated; R10.11 Right upper quadrant pain; R79.0 Abnormal level of blood mineral; Z79.899 Other long term (current) drug therapy; I48.91 Unspecified atrial fibrillation
CPT/HCPCS: 36415; 71045; 71250; 74176; 76705; 80053; 81001; 82150; 82607; 82728; 82746; 83540; 83550; 83605; 83690; 85025; 85027; 87040; 87070; 87637; 93005; 94640; 94762; 96360; 96365; 96374; 96375; 99285; Q3014